=== PATIENT | male | born 1980 | race African-American/Black ===

== ENCOUNTER 2021-02-28 09:21 | Emergency (ER) | payer MEDICARE, OTHER ==
[2021-02-28] MEDS ORDERED: Lidocaine 1% (PF) 30 ML VIAL ONE (11:31)
[2021-02-28] MEDS ORDERED: Midazolam HCl 2 mg/2 ml Vial ONE (13:04)
[2021-02-28] MEDS ORDERED: Phenylephrine 10 MG/ML VIAL IV SCH (13:30)
[2021-02-28] MEDS ORDERED: Morphine 4 MG/ML VIAL ONE (14:13)
== END 2021-02-28 15:10 | disposition home or self-care (01) ==
LOC: ERS 09:21
DX: N48.30 Priapism, unspecified (principal); Z79.899 Other long term (current) drug therapy; I10 Essential (primary) hypertension
CPT/HCPCS: 54235; 96374; J2001; J2250; J2270; J2370

== ENCOUNTER 2021-04-13 17:28 | Inpatient (IN) | payer MEDICARE, OTHER ==
[2021-04-13] MEDS ORDERED: Morphine 4 MG/ML VIAL ONE (19:24)
[2021-04-13] MEDS ORDERED: Ondansetron PF 4 MG/2 ML Vial ONE (19:25)
[2021-04-13] MEDS ORDERED: Cefepime 2 GM VIAL ONE (19:25)
[2021-04-13 20:00] LABS: #Eosinphils 0.4 thou/uL (0.0-0.7); #Lymphocytes 1.7 thou/uL (1.20-3.40); #Monocytes 0.9 thou/uL (0.11-0.59); #Neutrophils 10.7 thou/uL (1.40-6.50); %Basophils 0.3 % (0.0-1.0); %Eosinophils 2.8 % (0.0-10.0); %Lymphocytes 12.1 % (21.0-51.0); %Monocytes 6.7 % (0.0-10.0); %Neutrophils 78.1 % (42.0-75.0); Hemoglobin 12.1 g/dL (14.0-18.0); Mean Corpuscular HGB CONC 32.9 g/dL (32.0-36.0); Mean Corpuscular Hemoglobin 30.9 pg (27.0-31.0); Mean Corpuscular Volume 93.7 fL (78.0-98.0); Mean Platelet Volume 9.2 fL (7.4-10.4); Platelet Count 222 thou/uL (130-400); RBC Distribution Width 12.7 % (11.5-14.5); Red Blood Cell (RBC) Count 3.91 mill/uL (4.70-6.10); White Blood Cell (WBC) Count 13.8 thou/uL (4.8-10.8)
[2021-04-13] MEDS ORDERED: Ondansetron PF 4 MG/2 ML Vial IVP PRN (20:16)
[2021-04-13] MEDS ORDERED: Ondansetron ODT 4 MG TAB PO PRN (20:16)
[2021-04-13] MEDS ORDERED: HYDROcodone/Acetaminophen 5/325 mg Tablet PO PRN (20:16)
[2021-04-13] MEDS ORDERED: oxyCODONE ER 10 MG TAB PO SCH (21:00)
[2021-04-13 21:06] LABS: Anion Gap 9 mmol/L (10-20); BUN (Urea Nitrogen) 22 mg/dL (8.9-20.6); Calc. Creatinine Clearance 0 mL/min (70-130); Calcium 9.3 mg/dL (7.8-10.44); Carbon Dioxide 34 mmol/L (22-29); Chloride 104 mmol/L (98-107); Glucose 93 mg/dL (70-105); Potassium 3.8 mmol/L (3.5-5.1); Sodium 143 mmol/L (136-145)
[2021-04-13 22:27] VITALS: BMI 32.7
[2021-04-13] MEDS ORDERED: VANCOMYCIN 2 GRAM/400 ML BAG 2 GM in Premix Bag 1 BAG IVPB SCH (23:00)
[2021-04-13] MEDS: Morphine 4 MG/ML VIAL SLOW IVP PRN (23:27)
[2021-04-13] MEDS ORDERED: Bumetanide 1 MG TAB PO SCH (23:30)
[2021-04-13] MEDS ORDERED: Carvedilol 25 MG TAB PO SCH (23:30)
[2021-04-13] MEDS ORDERED: Spironolactone 25 MG TAB PO SCH (23:30)
[2021-04-13] MEDS ORDERED: Sacubitril 49 MG/Valsartan 51 MG TABLET PO SCH (23:30)
[2021-04-14] MEDS ORDERED: Docusate 100 MG CAP PO PRN (00:43)
[2021-04-14] MEDS: HYDROcodone/Acetaminophen 5/325 mg Tablet PO PRN ×2 (00:52→04:27)
[2021-04-14] MEDS ORDERED: Zolpidem Tartrate 5 MG TAB PO PRN (01:01)
[2021-04-14] MEDS: Morphine 4 MG/ML VIAL SLOW IVP PRN (02:47)
[2021-04-14 04:18] VITALS: BP 116/80
[2021-04-14 04:51] VITALS: TEMP 98.5
[2021-04-14] MEDS ORDERED: Spironolactone 25 MG TAB PO SCH (08:00)
[2021-04-14] MEDS ORDERED: Cefepime 1 GM in Sodium Chloride 0.9% 100 ML IVPB SCH (08:00)
[2021-04-14] MEDS ORDERED: Carvedilol 25 MG TAB PO SCH (08:00)
[2021-04-14] MEDS ORDERED: Potassium Chloride 10 MEQ TAB PO SCH (08:00)
[2021-04-14] MEDS ORDERED: CEFEPIME HCL IN DEXTROSE 5 % 1 GM in Premix Bag 1 BAG IVPB SCH (08:00)
[2021-04-14] MEDS ORDERED: Sacubitril 49 MG/Valsartan 51 MG TABLET PO SCH (09:00)
[2021-04-14] MEDS ORDERED: Bumetanide 1 MG TAB PO SCH (09:00)
[2021-04-14] MEDS ORDERED: Polyethylene Glycol 3350 17 GM Packet PO SCH (09:00)
[2021-04-14] MEDS ORDERED: VANCOMYCIN 1.75 GM/350 ML BAG 1.75 GM in Premix Bag 1 BAG IVPB SCH (11:00)
== END 2021-04-14 05:55 | disposition left against medical advice (07) | DRG 728 ==
LOC: ERS 17:28 → MERGE 19:47 → T4-B 19:47
PROVIDERS: ADMIT Internal Medicine; ATTEND Internal Medicine
DX: N48.29 Other inflammatory disorders of penis (principal); I50.42 Chronic combined systolic (congestive) and diastolic (congestive) heart failure; N48.30 Priapism, unspecified; Z20.822 Contact with and (suspected) exposure to COVID-19; I11.0 Hypertensive heart disease with heart failure; D72.829 Elevated white blood cell count, unspecified; Z53.29 Procedure and treatment not carried out because of patient's decision for other reasons; Z79.899 Other long term (current) drug therapy
CPT/HCPCS: 36415; 96365; 96366; 96375; J0692; J2270; J2405; J3370

== ENCOUNTER 2021-04-15 01:49 | Inpatient (IN) | payer MEDICARE, OTHER ==
[2021-04-15] MEDS ORDERED: Furosemide 40 MG/4 ML VIAL SLOW IVP SCH (05:00)
[2021-04-15] MEDS ORDERED: Acetaminophen 650 MG Suppository PR PRN (05:01)
[2021-04-15] MEDS ORDERED: Acetaminophen 325 MG TAB PO PRN (05:01)
[2021-04-15] MEDS: HYDROcodone/Acetaminophen 5/325 mg Tablet PO PRN ×4 (05:24→20:47)
[2021-04-15 05:55] VITALS: BMI 30.5
[2021-04-15 06:23] LABS: #Basophils 0.1 thou/uL (0.0-0.2); #Eosinphils 0.1 thou/uL (0.0-0.7); #Lymphocytes 1.8 thou/uL (1.20-3.40); #Monocytes 1.1 thou/uL (0.11-0.59); #Neutrophils 9.9 thou/uL (1.40-6.50); %Basophils 0.5 % (0.0-1.0); %Eosinophils 1.1 % (0.0-10.0); %Lymphocytes 13.7 % (21.0-51.0); %Monocytes 8.2 % (0.0-10.0); %Neutrophils 76.4 % (42.0-75.0); Mean Corpuscular HGB CONC 32.8 g/dL (32.0-36.0); Mean Corpuscular Hemoglobin 30.6 pg (27.0-31.0); Mean Corpuscular Volume 93.3 fL (78.0-98.0); Platelet Count 283 thou/uL (130-400); RBC Distribution Width 12.8 % (11.5-14.5); Red Blood Cell (RBC) Count 4.24 mill/uL (4.70-6.10); White Blood Cell (WBC) Count 12.9 thou/uL (4.8-10.8)
[2021-04-15 06:37] LABS: Anion Gap 12 mmol/L (10-20); BUN (Urea Nitrogen) 15 mg/dL (8.9-20.6); Calc. Creatinine Clearance 138 mL/min (70-130); Calcium 9.9 mg/dL (7.8-10.44); Carbon Dioxide 29 mmol/L (22-29); Chloride 102 mmol/L (98-107); Glucose 108 mg/dL (70-105); Potassium 3.5 mmol/L (3.5-5.1); Sodium 139 mmol/L (136-145)
[2021-04-15] MEDS ORDERED: Morphine 4 MG/ML VIAL SLOW IVP SCH (09:00)
[2021-04-15] MEDS: Carvedilol 25 MG TAB PO SCH ×2 (09:05→20:15)
[2021-04-15] MEDS ORDERED: HYDROcodone/Acetaminophen 5/325 mg Tablet PO PRN (11:30)
[2021-04-15] MEDS: Spironolactone 25 MG TAB PO SCH (11:35)
[2021-04-15] MEDS: Sacubitril 49 MG/Valsartan 51 MG TABLET PO SCH ×2 (11:35→20:18)
[2021-04-15] MEDS: Cefepime 2 GM in Sodium Chloride 0.9% 100 ML IVPB SCH ×2 (11:35→20:20)
[2021-04-15] MEDS: Morphine 2 MG/ML VIAL SLOW IVP PRN ×3 (13:56→22:22)
[2021-04-15 15:01] LABS: Amphetamine Not Detected (NotDetected); Barbiturates Screen Not Detected (NotDetected); Benzodiazepine Screen Not Detected (NotDetected); Cocaine Metabolite Screen Not Detected (NotDetected); Methadone Not Detected (NotDetected); Methamphetamine Not Detected (NotDetected); Opiate Screen Detected (NotDetected); Oxycodone Screen Not Detected (NotDetected); Phencyclidine (PCP) Not Detected (NotDetected); THC/Cannabinoid Screen Not Detected (NotDetected); Tricyclic Screen Not Detected (NotDetected)
[2021-04-15] MEDS: Ibuprofen 200 MG TAB PO SCH ×2 (15:46→20:16)
[2021-04-15] MEDS ORDERED: Triple Antibiotic Oint 1 GM Packet TOP PRN (18:07)
[2021-04-15] MEDS ORDERED: Potassium Chloride 10 MEQ TAB PO SCH (18:15)
[2021-04-15] MEDS: Vancomycin 1.5 GRAM/300 ML BAG 1.5 GM in Premix Bag 1 BAG IVPB SCH (18:18)
[2021-04-15] MEDS: Zolpidem Tartrate 5 MG TAB PO PRN (22:23)
[2021-04-16] MEDS: Morphine 2 MG/ML VIAL SLOW IVP PRN ×3 (03:44→12:27)
[2021-04-16] MEDS: HYDROcodone/Acetaminophen 5/325 mg Tablet PO PRN ×2 (05:57→10:18)
[2021-04-16] MEDS: Vancomycin 1.5 GRAM/300 ML BAG 1.5 GM in Premix Bag 1 BAG IVPB SCH ×2 (05:59→17:43)
[2021-04-16 06:49] LABS: #Basophils 0.1 thou/uL (0.0-0.2); #Eosinphils 0.3 thou/uL (0.0-0.7); #Lymphocytes 1.5 thou/uL (1.20-3.40); #Neutrophils 5.9 thou/uL (1.40-6.50); %Eosinophils 2.9 % (0.0-10.0); %Lymphocytes 17.2 % (21.0-51.0); %Monocytes 11.4 % (0.0-10.0); %Neutrophils 67.5 % (42.0-75.0); Hemoglobin 12.5 g/dL (14.0-18.0); Mean Corpuscular HGB CONC 32.6 g/dL (32.0-36.0); Mean Corpuscular Hemoglobin 30.5 pg (27.0-31.0); Mean Corpuscular Volume 93.6 fL (78.0-98.0); Mean Platelet Volume 9.4 fL (7.4-10.4); Platelet Count 252 thou/uL (130-400); Red Blood Cell (RBC) Count 4.11 mill/uL (4.70-6.10); White Blood Cell (WBC) Count 8.7 thou/uL (4.8-10.8)
[2021-04-16 07:23] LABS: Anion Gap 11 mmol/L (10-20); BUN (Urea Nitrogen) 18 mg/dL (8.9-20.6); Calc. Creatinine Clearance 144 mL/min (70-130); Calcium 9.3 mg/dL (7.8-10.44); Carbon Dioxide 30 mmol/L (22-29); Chloride 104 mmol/L (98-107); Glucose 129 mg/dL (70-105); Potassium 3.7 mmol/L (3.5-5.1); Sodium 141 mmol/L (136-145)
[2021-04-16] MEDS: Carvedilol 25 MG TAB PO SCH ×2 (08:25→20:14)
[2021-04-16] MEDS: Cefepime 2 GM in Sodium Chloride 0.9% 100 ML IVPB SCH ×2 (08:26→20:13)
[2021-04-16] MEDS: Sacubitril 49 MG/Valsartan 51 MG TABLET PO SCH ×2 (08:26→20:13)
[2021-04-16] MEDS: Potassium Chloride 10 MEQ TAB PO SCH ×2 (08:26→17:43)
[2021-04-16] MEDS: Furosemide 40 MG TAB PO SCH (08:26)
[2021-04-16] MEDS: Spironolactone 25 MG TAB PO SCH (08:26)
[2021-04-16] MEDS ORDERED: Furosemide 20 MG TAB PO SCH (09:00)
[2021-04-16] MEDS: HYDROcodone/Acetaminophen 10/325 mg Tablet PO PRN (15:03)
[2021-04-16 17:22] LABS: Vancomycin, Trough 11.8 ug/mL
[2021-04-16] MEDS: Morphine 4 MG/ML VIAL SLOW IVP PRN ×2 (17:43→21:43)
[2021-04-16] MEDS: Zolpidem Tartrate 5 MG TAB PO PRN (20:16)
[2021-04-17] MEDS: Morphine 4 MG/ML VIAL SLOW IVP PRN ×3 (01:36→10:14)
[2021-04-17] MEDS ORDERED: VANCOMYCIN 1.25 GM/250 ML BAG 1.25 GM in Premix Bag 1 BAG IVPB SCH (02:00)
[2021-04-17] MEDS: HYDROcodone/Acetaminophen 10/325 mg Tablet PO PRN (06:30)
[2021-04-17] MEDS: Spironolactone 25 MG TAB PO SCH (09:48)
[2021-04-17] MEDS: Sacubitril 49 MG/Valsartan 51 MG TABLET PO SCH (09:48)
[2021-04-17] MEDS: Furosemide 40 MG TAB PO SCH (09:48)
[2021-04-17] MEDS: Carvedilol 25 MG TAB PO SCH (09:49)
[2021-04-17] MEDS: Potassium Chloride 10 MEQ TAB PO SCH (09:49)
[2021-04-17] MEDS: Cefepime 2 GM in Sodium Chloride 0.9% 100 ML IVPB SCH (09:50)
[2021-04-17 11:56] VITALS: BP 122/67; TEMP 98.6
[2021-04-18 12:38] LABS: Hemoglobin A2 2.9 % (1.8-3.2)
== END 2021-04-17 11:35 | disposition home or self-care (01) | DRG 727 ==
LOC: ERS 01:49 → MERGE 03:58 → SURG A 03:58
PROVIDERS: ADMIT Student in an Organized Health Care Education/Training Program; ATTEND Family Medicine
DX: N48.29 Other inflammatory disorders of penis (principal); I50.23 Acute on chronic systolic (congestive) heart failure; I42.9 Cardiomyopathy, unspecified; B95.2 Enterococcus as the cause of diseases classified elsewhere; Z20.822 Contact with and (suspected) exposure to COVID-19; N48.30 Priapism, unspecified; E78.5 Hyperlipidemia, unspecified; I11.0 Hypertensive heart disease with heart failure; F14.10 Cocaine abuse, uncomplicated; F17.210 Nicotine dependence, cigarettes, uncomplicated; Z79.899 Other long term (current) drug therapy; Z79.01 Long term (current) use of anticoagulants; Z91.14 Patient's other noncompliance with medication regimen
CPT/HCPCS: 36415; 71045; 80048; 80202; 80306; 83021; 85025; 85660; 87040; 87070; 87077; 87186; 93306; 97139; J0692; J1940; J2270; J3370; J3490

== ENCOUNTER 2021-09-09 14:05 | Emergency (ER) | payer MEDICARE, OTHER ==
[2021-09-09 15:46] LABS: Bilirubin Negative (Negative); Blood, Urine Negative (Negative); Clarity Clear (Clear); Glucose, Urine (Dipstick) Normal (Negative); Ketone, Urine Negative (Negative); Leukocyte Negative Leu/uL (Negative); Nitrite Negative (Negative); Protein, Urine (Dipstick) Negative (Neg-Trace); Specific Gravity, Urine 1.015 (1.002-1.036); Urobilinogen Normal mg/dL (Less than 2)
[2021-09-09 17:35] LABS: #Basophils 0.1 thou/uL (0.0-0.2); #Eosinphils 0.2 thou/uL (0.0-0.7); #Lymphocytes 1.9 thou/uL (1.20-3.40); #Monocytes 0.7 thou/uL (0.11-0.59); #Neutrophils 6.1 thou/uL (1.40-6.50); %Eosinophils 2.5 % (0.0-10.0); %Lymphocytes 20.7 % (21.0-51.0); %Monocytes 7.9 % (0.0-10.0); %Neutrophils 67.9 % (42.0-75.0); Hemoglobin 14.7 g/dL (14.0-18.0); Mean Corpuscular HGB CONC 33.7 g/dL (32.0-36.0); Mean Corpuscular Hemoglobin 30.4 pg (27.0-31.0); Mean Platelet Volume 9.4 fL (7.4-10.4); Platelet Count 180 thou/uL (130-400); RBC Distribution Width 13.3 % (11.5-14.5); Red Blood Cell (RBC) Count 4.86 mill/uL (4.70-6.10)
[2021-09-09 17:55] LABS: ALT (SGPT) 26 U/L (8-55); AST (SGOT) 28 U/L (5-34); Alkaline Phosphatase 75 U/L (40-110); Anion Gap 14 mmol/L (10-20); BUN (Urea Nitrogen) 19 mg/dL (8.9-20.6); Bilirubin, Total 0.5 mg/dL (0.2-1.2); Calc. Creatinine Clearance 0 mL/min (70-130); Calcium 9.7 mg/dL (7.8-10.44); Carbon Dioxide 31 mmol/L (22-29); Chloride 101 mmol/L (98-107); Globulin 3.5 g/dL (2.4-3.5); Glucose 76 mg/dL (70-105); Lipase 25 U/L (8-78); Potassium 4.2 mmol/L (3.5-5.1); Protein, Total 7.5 g/dL (6.0-8.3); Sodium 142 mmol/L (136-145)
== END 2021-09-09 18:05 | disposition home or self-care (01) ==
LOC: ERS 14:05
DX: S29.011A Strain of muscle and tendon of front wall of thorax, initial encounter (principal); R10.9 Unspecified abdominal pain; I11.0 Hypertensive heart disease with heart failure; I50.9 Heart failure, unspecified; I25.2 Old myocardial infarction; Z79.899 Other long term (current) drug therapy
CPT/HCPCS: 36415; 80053; 81003; 83690; 85025; 99284

== ENCOUNTER 2021-10-19 11:49 | Inpatient (IN) | payer MEDICARE, OTHER ==
[2021-10-19 13:16] LABS: #Basophils 0.1 thou/uL (0.0-0.2); #Eosinphils 0.2 thou/uL (0.0-0.7); #Lymphocytes 1.8 thou/uL (1.20-3.40); #Monocytes 0.7 thou/uL (0.11-0.59); #Neutrophils 5.3 thou/uL (1.40-6.50); %Basophils 1.1 % (0.0-1.0); %Eosinophils 2.2 % (0.0-10.0); %Lymphocytes 22.6 % (21.0-51.0); %Monocytes 8.5 % (0.0-10.0); %Neutrophils 65.6 % (42.0-75.0); Hemoglobin 15.6 g/dL (14.0-18.0); Mean Corpuscular HGB CONC 31.7 g/dL (32.0-36.0); Mean Corpuscular Hemoglobin 28.8 pg (27.0-31.0); Mean Corpuscular Volume 90.8 fL (78.0-98.0); Platelet Count 159 thou/uL (130-400); RBC Distribution Width 13.3 % (11.5-14.5); Red Blood Cell (RBC) Count 5.41 mill/uL (4.70-6.10); White Blood Cell (WBC) Count 8.1 thou/uL (4.8-10.8)
[2021-10-19] MEDS ORDERED: Guaifenesin DM 100-10/5 ML UDCUP PO PRN (13:55)
[2021-10-19] MEDS ORDERED: Senokot S 8.6-50 MG TAB PO PRN (13:55)
[2021-10-19] MEDS ORDERED: Ondansetron PF 4 MG/2 ML Vial IVP PRN (13:55)
[2021-10-19] MEDS ORDERED: Acetaminophen 325 MG TAB PO PRN (13:55)
[2021-10-19 14:16] LABS: ALT (SGPT) 16 U/L (8-55); AST (SGOT) 21 U/L (5-34); Albumin 4.5 g/dL (3.5-5.0); Alkaline Phosphatase 73 U/L (40-110); Anion Gap 15 mmol/L (10-20); BUN (Urea Nitrogen) 27 mg/dL (8.9-20.6); Bilirubin, Total 0.7 mg/dL (0.2-1.2); Calc. Creatinine Clearance 0 mL/min (70-130); Carbon Dioxide 28 mmol/L (22-29); Chloride 100 mmol/L (98-107); Globulin 3.7 g/dL (2.4-3.5); Glucose 108 mg/dL (70-105); Potassium 4.2 mmol/L (3.5-5.1); Protein, Total 8.2 g/dL (6.0-8.3); Sodium 139 mmol/L (136-145)
[2021-10-19 14:41] LABS: CKMB 1.6 ng/mL (0-6.6)
[2021-10-19 17:27] VITALS: BMI 30.1
[2021-10-19 20:25] LABS: Magnesium 2.2 mg/dL (1.6-2.6)
[2021-10-19] MEDS: Famotidine 20 MG TAB PO SCH (20:39)
[2021-10-19] MEDS: Potassium Chloride 10 MEQ TAB PO SCH (20:39)
[2021-10-19] MEDS: Carvedilol 25 MG TAB PO SCH (20:39)
[2021-10-19] MEDS ORDERED: Melatonin 3 MG TAB PO PRN (22:04)
[2021-10-20 00:54] LABS: SARS-CoV-2 PCR by NAA Not Detected (NotDetected)
[2021-10-20] MEDS: Milrinone Lactate/D5W 20 MG in Premix Bag 1 BAG IV SCH ×2 (03:35→13:16)
[2021-10-20 06:55] LABS: #Basophils 0.1 thou/uL (0.0-0.2); #Eosinphils 0.2 thou/uL (0.0-0.7); #Lymphocytes 1.6 thou/uL (1.20-3.40); #Monocytes 0.8 thou/uL (0.11-0.59); #Neutrophils 5.1 thou/uL (1.40-6.50); %Basophils 0.8 % (0.0-1.0); %Eosinophils 2.8 % (0.0-10.0); %Lymphocytes 20.5 % (21.0-51.0); Hemoglobin 14.2 g/dL (14.0-18.0); Mean Corpuscular HGB CONC 31.3 g/dL (32.0-36.0); Mean Corpuscular Hemoglobin 28.3 pg (27.0-31.0); Mean Corpuscular Volume 90.4 fL (78.0-98.0); Mean Platelet Volume 10.2 fL (7.4-10.4); Platelet Count 152 thou/uL (130-400); RBC Distribution Width 13.2 % (11.5-14.5); Red Blood Cell (RBC) Count 5.03 mill/uL (4.70-6.10); White Blood Cell (WBC) Count 7.8 thou/uL (4.8-10.8)
[2021-10-20 07:13] LABS: Anion Gap 11 mmol/L (10-20); BUN (Urea Nitrogen) 24 mg/dL (8.9-20.6); Calc. Creatinine Clearance 111 mL/min (70-130); Calcium 9.5 mg/dL (7.8-10.44); Carbon Dioxide 27 mmol/L (22-29); Chloride 101 mmol/L (98-107); Glucose 108 mg/dL (70-105); Potassium 4.1 mmol/L (3.5-5.1); Sodium 135 mmol/L (136-145)
[2021-10-20 07:13] LABS: Magnesium 2.1 mg/dL (1.6-2.6)
[2021-10-20] MEDS: Famotidine 20 MG TAB PO SCH (08:55)
[2021-10-20] MEDS: Potassium Chloride 10 MEQ TAB PO SCH (08:56)
[2021-10-20] MEDS: Carvedilol 25 MG TAB PO SCH (08:58)
[2021-10-20] MEDS ORDERED: FLU VACC QS2021-22(6MOS UP)/PF 60 MCG/0.5 ML SYRINGE IM ONE (09:00)
[2021-10-20] MEDS ORDERED: Furosemide 40 MG/4 ML VIAL SLOW IVP SCH (09:00)
[2021-10-20] MEDS ORDERED: Enoxaparin Sodium 40 MG/0.4 ML SYRINGE SC SCH (09:00)
[2021-10-20 11:39] VITALS: TEMP 97.7
[2021-10-20] MEDS ORDERED: Spironolactone 25 MG TAB PO SCH (12:30)
[2021-10-20 12:39] VITALS: BP 122/61
[2021-10-21] MEDS ORDERED: Spironolactone 25 MG TAB PO SCH (08:00)
== END 2021-10-20 13:40 | disposition short-term general hospital (02) | DRG 291 ==
LOC: ERS 11:49 → IMCU/EMU 14:01 → 2NO 17:09
PROVIDERS: ADMIT Hospitalist; ATTEND Internal Medicine
DX: I13.0 Hypertensive heart and chronic kidney disease with heart failure and stage 1 through stage 4 chronic kidney disease, or unspecified chronic kidney disease (principal); R57.0 Cardiogenic shock; I50.23 Acute on chronic systolic (congestive) heart failure; I42.0 Dilated cardiomyopathy; Z20.822 Contact with and (suspected) exposure to COVID-19; E78.5 Hyperlipidemia, unspecified; N18.2 Chronic kidney disease, stage 2 (mild); Z88.8 Allergy status to other drugs, medicaments and biological substances; Z79.899 Other long term (current) drug therapy; Z87.891 Personal history of nicotine dependence
CPT/HCPCS: 36415; 71045; 80048; 80053; 82553; 83735; 83880; 84484; 85025; 93005; 93306; 93798; J1650; J1940; J2260; U0003; U0005

== ENCOUNTER 2024-02-17 07:51 | Inpatient (IN) | payer MEDICAID, MEDICARE ==
[2024-02-17 19:21] VITALS: BMI 29.0
[2024-02-17] MEDS ORDERED: Simethicone Chewable 80 MG TAB PO PRN (20:08)
[2024-02-17 20:21] LABS: %Basophils 0.9 % (0.0-1.0); %Eosinophils 2.6 % (0.0-10.0); %Lymphocytes 15.2 % (21.0-51.0); %Monocytes 8.9 % (0.0-10.0); %Neutrophils 72.1 % (42.0-75.0); Hematocrit 47.7 % (42.0-52.0); Hemoglobin 15.9 g/dL (14.0-18.0); Mean Corpuscular HGB CONC 33.3 g/dL (32.0-36.0); Mean Corpuscular Hemoglobin 28.4 pg (27.0-31.0); Mean Corpuscular Volume 85.3 fL (78.0-98.0); Mean Platelet Volume 11.4 fL (7.4-10.4); Platelet Count 253 10x3/uL (130-400); RBC Distribution Width 14.7 % (11.5-14.5); Red Blood Cell (RBC) Count 5.59 mill/uL (4.70-6.10)
[2024-02-17 20:27] LABS: ALT (SGPT) 35 U/L (8-55); AST (SGOT) 33 U/L (5-34); Albumin 3.8 g/dL (3.5-5.0); Alkaline Phosphatase 70 U/L (40-110); Anion Gap 17 mmol/L (10-20); BUN (Urea Nitrogen) 55 mg/dL (8.9-20.6); Bilirubin, Total 0.6 mg/dL (0.2-1.2); Calc. Creatinine Clearance 82 mL/min (70-130); Calcium 9.7 mg/dL (7.8-10.44); Carbon Dioxide 25 mmol/L (22-29); Chloride 94 mmol/L (98-107); Estimated GFR 54; Globulin 3.3 g/dL (2.4-3.5); Glucose 109 mg/dL (70-105); Magnesium 2.2 mg/dL (1.6-2.6); Potassium 3.8 mmol/L (3.5-5.1); Protein, Total 7.1 g/dL (6.0-8.3); Sodium 132 mmol/L (136-145)
[2024-02-17 20:30] LABS: Phosphorus 2.8 mg/dL (2.3-4.7)
[2024-02-17] MEDS: Bumetanide 1 MG TAB PO SCH (21:20)
[2024-02-17] MEDS: Zolpidem Tartrate 5 MG TAB PO SCH (21:20)
[2024-02-17] MEDS: Carvedilol 25 MG TAB PO SCH (21:21)
[2024-02-17] MEDS: Milrinone 20 MG in Sodium Chloride 0.9% 100 ML IVPB SCH (21:23)
[2024-02-17] MEDS: Potassium Chloride 10 MEQ TAB PO SCH (21:46)
[2024-02-18] MEDS: Empagliflozin 25 MG TAB PO SCH (08:12)
[2024-02-18] MEDS: Enoxaparin 40 MG (0.4 mL) SYRINGE SC SCH (08:12)
[2024-02-18] MEDS: Pantoprazole DR 40 MG TAB PO SCH (08:12)
[2024-02-18] MEDS: Digoxin 0.125 MG TAB PO SCH (08:12)
[2024-02-18] MEDS: Atorvastatin Calcium 40 MG TAB PO SCH (08:12)
[2024-02-18] MEDS: Spironolactone 25 MG TAB PO SCH (08:12)
[2024-02-18] MEDS: Potassium Chloride 10 MEQ TAB PO SCH (08:12)
[2024-02-18 09:05] LABS: #Basophils 0.11 10x3/uL (0.0-0.2); %Basophils 0.9 % (0.0-1.0); %Eosinophils 3.1 % (0.0-10.0); %Lymphocytes 15.4 % (21.0-51.0); %Neutrophils 72.4 % (42.0-75.0); Hematocrit 48.4 % (42.0-52.0); Hemoglobin 15.6 g/dL (14.0-18.0); Mean Corpuscular HGB CONC 32.2 g/dL (32.0-36.0); Mean Corpuscular Hemoglobin 28.3 pg (27.0-31.0); Mean Corpuscular Volume 87.8 fL (78.0-98.0); Mean Platelet Volume 11.4 fL (7.4-10.4); Platelet Count 235 10x3/uL (130-400); RBC Distribution Width 14.7 % (11.5-14.5); Red Blood Cell (RBC) Count 5.51 mill/uL (4.70-6.10)
[2024-02-18 09:33] LABS: Anion Gap 19 mmol/L (10-20); BUN (Urea Nitrogen) 59 mg/dL (8.9-20.6); Calc. Creatinine Clearance 90 mL/min (70-130); Calcium 9.5 mg/dL (7.8-10.44); Carbon Dioxide 24 mmol/L (22-29); Chloride 95 mmol/L (98-107); Estimated GFR 59; Glucose 138 mg/dL (70-105); Potassium 3.5 mmol/L (3.5-5.1); Sodium 134 mmol/L (136-145)
[2024-02-18] MEDS: Potassium Chloride 20 MEQ TAB PO SCH (11:09)
[2024-02-18 11:38] VITALS: BMI 29.7
[2024-02-18] MEDS: Milrinone Lactate/D5W 20 MG in Premix 1 BAG IV SCH (19:18)
[2024-02-18] MEDS: Acetaminophen 325 MG TAB PO PRN (21:19)
[2024-02-19 04:51] LABS: %Lymphocytes 18.9 % (21.0-51.0); %Monocytes 9.1 % (0.0-10.0); %Neutrophils 66.9 % (42.0-75.0); Hematocrit 44.9 % (42.0-52.0); Mean Corpuscular HGB CONC 33.4 g/dL (32.0-36.0); Mean Corpuscular Hemoglobin 28.5 pg (27.0-31.0); Mean Corpuscular Volume 85.4 fL (78.0-98.0); Mean Platelet Volume 11.7 fL (7.4-10.4); Platelet Count 218 10x3/uL (130-400); RBC Distribution Width 14.4 % (11.5-14.5); Red Blood Cell (RBC) Count 5.26 mill/uL (4.70-6.10)
[2024-02-19 05:58] LABS: Anion Gap 14 mmol/L (10-20); BUN (Urea Nitrogen) 52 mg/dL (8.9-20.6); Calc. Creatinine Clearance 90 mL/min (70-130); Calcium 9.6 mg/dL (7.8-10.44); Carbon Dioxide 29 mmol/L (22-29); Chloride 96 mmol/L (98-107); Estimated GFR 59; Glucose 118 mg/dL (70-105); Magnesium 2.2 mg/dL (1.6-2.6); Potassium 3.6 mmol/L (3.5-5.1); Sodium 135 mmol/L (136-145)
[2024-02-19] MEDS: Sacubitril 24MG/Valsartan 26 MG TAB PO SCH (08:39)
[2024-02-20 05:02] LABS: #Basophils 0.09 10x3/uL (0.0-0.2); %Basophils 0.8 % (0.0-1.0); %Eosinophils 2.8 % (0.0-10.0); %Lymphocytes 14.9 % (21.0-51.0); %Monocytes 9.4 % (0.0-10.0); %Neutrophils 71.7 % (42.0-75.0); Hematocrit 46.8 % (42.0-52.0); Hemoglobin 15.3 g/dL (14.0-18.0); Mean Corpuscular HGB CONC 32.7 g/dL (32.0-36.0); Mean Corpuscular Hemoglobin 28.8 pg (27.0-31.0); Mean Platelet Volume 11.6 fL (7.4-10.4); Platelet Count 215 10x3/uL (130-400); RBC Distribution Width 14.6 % (11.5-14.5); Red Blood Cell (RBC) Count 5.32 mill/uL (4.70-6.10)
[2024-02-20 05:22] LABS: Anion Gap 18 mmol/L (10-20); BUN (Urea Nitrogen) 40 mg/dL (8.9-20.6); Calc. Creatinine Clearance 98 mL/min (70-130); Calcium 9.7 mg/dL (7.8-10.44); Carbon Dioxide 28 mmol/L (22-29); Chloride 94 mmol/L (98-107); Estimated GFR 68; Glucose 115 mg/dL (70-105); Magnesium 2.2 mg/dL (1.6-2.6); Potassium 3.8 mmol/L (3.5-5.1); Sodium 136 mmol/L (136-145)
[2024-02-20] MEDS ORDERED: Metolazone 5 MG TAB PO SCH (09:00)
[2024-02-20] MEDS: Sacubitril 24MG/Valsartan 26 MG TAB PO SCH (09:07)
[2024-02-20] MEDS: Spironolactone 25 MG TAB PO SCH (09:08)
[2024-02-20] MEDS: Terbinafine 1% Cream 15 GM Tube TOP SCH (09:09)
[2024-02-20] MEDS ORDERED: Sodium Bicarbonate 2.5 MEQ/5 ML SDV ONE (13:13)
[2024-02-20] MEDS ORDERED: Lidocaine 1% PF 5 ML VIAL ONE (13:13)
[2024-02-20] MEDS: Lidocaine 4% Patch TD SCH (16:43)
[2024-02-20] MEDS: Transdermal Patch Removal TOP SCH (21:41)
[2024-02-21 05:55] LABS: #Basophils 0.08 10x3/uL (0.0-0.2); %Basophils 0.8 % (0.0-1.0); %Eosinophils 2.4 % (0.0-10.0); %Lymphocytes 16.7 % (21.0-51.0); %Monocytes 8.8 % (0.0-10.0); %Neutrophils 71.1 % (42.0-75.0); Hematocrit 47.1 % (42.0-52.0); Hemoglobin 15.3 g/dL (14.0-18.0); Mean Corpuscular HGB CONC 32.5 g/dL (32.0-36.0); Mean Corpuscular Hemoglobin 28.1 pg (27.0-31.0); Mean Corpuscular Volume 86.6 fL (78.0-98.0); Mean Platelet Volume 12.4 fL (7.4-10.4); Platelet Count 201 10x3/uL (130-400); RBC Distribution Width 14.6 % (11.5-14.5); Red Blood Cell (RBC) Count 5.44 mill/uL (4.70-6.10)
[2024-02-21 06:25] LABS: Anion Gap 15 mmol/L (10-20); BUN (Urea Nitrogen) 33 mg/dL (8.9-20.6); Calc. Creatinine Clearance 105 mL/min (70-130); Calcium 9.9 mg/dL (7.8-10.44); Carbon Dioxide 29 mmol/L (22-29); Chloride 96 mmol/L (98-107); Estimated GFR 73; Glucose 142 mg/dL (70-105); Magnesium 2.1 mg/dL (1.6-2.6); Sodium 136 mmol/L (136-145)
[2024-02-21] MEDS: Lidocaine 4% Patch TD SCH (09:46)
[2024-02-21] MEDS: Carvedilol 6.25 MG TAB PO SCH (09:47)
[2024-02-22 06:30] LABS: #Basophils 0.08 10x3/uL (0.0-0.2); %Basophils 0.7 % (0.0-1.0); %Eosinophils 2.3 % (0.0-10.0); %Lymphocytes 16.9 % (21.0-51.0); %Monocytes 9.7 % (0.0-10.0); %Neutrophils 70.2 % (42.0-75.0); Hematocrit 45.5 % (42.0-52.0); Hemoglobin 14.7 g/dL (14.0-18.0); Mean Corpuscular HGB CONC 32.3 g/dL (32.0-36.0); Mean Corpuscular Hemoglobin 28.8 pg (27.0-31.0); Mean Platelet Volume 11.8 fL (7.4-10.4); Platelet Count 185 10x3/uL (130-400); RBC Distribution Width 14.6 % (11.5-14.5); Red Blood Cell (RBC) Count 5.11 mill/uL (4.70-6.10)
[2024-02-22 06:39] LABS: Anion Gap 15 mmol/L (10-20); BUN (Urea Nitrogen) 33 mg/dL (8.9-20.6); Calc. Creatinine Clearance 106 mL/min (70-130); Calcium 9.6 mg/dL (7.8-10.44); Carbon Dioxide 28 mmol/L (22-29); Chloride 102 mmol/L (98-107); Estimated GFR 73; Glucose 114 mg/dL (70-105); Magnesium 2.1 mg/dL (1.6-2.6); Potassium 4.2 mmol/L (3.5-5.1); Sodium 141 mmol/L (136-145)
[2024-02-22] MEDS: Potassium Chloride 10 MEQ TAB PO SCH (09:11)
[2024-02-23 04:38] LABS: #Basophils 0.09 10x3/uL (0.0-0.2); %Basophils 0.9 % (0.0-1.0); %Eosinophils 3.1 % (0.0-10.0); %Monocytes 10.7 % (0.0-10.0); Hematocrit 44.2 % (42.0-52.0); Hemoglobin 14.3 g/dL (14.0-18.0); Mean Corpuscular HGB CONC 32.4 g/dL (32.0-36.0); Mean Corpuscular Hemoglobin 28.7 pg (27.0-31.0); Mean Corpuscular Volume 88.8 fL (78.0-98.0); Mean Platelet Volume 11.8 fL (7.4-10.4); Platelet Count 191 10x3/uL (130-400); RBC Distribution Width 14.6 % (11.5-14.5); Red Blood Cell (RBC) Count 4.98 mill/uL (4.70-6.10)
[2024-02-23 04:58] LABS: Anion Gap 13 mmol/L (10-20); BUN (Urea Nitrogen) 26 mg/dL (8.9-20.6); Calc. Creatinine Clearance 116 mL/min (70-130); Calcium 9.5 mg/dL (7.8-10.44); Carbon Dioxide 30 mmol/L (22-29); Chloride 102 mmol/L (98-107); Estimated GFR 81; Glucose 103 mg/dL (70-105); Magnesium 2.1 mg/dL (1.6-2.6); Potassium 3.8 mmol/L (3.5-5.1); Sodium 141 mmol/L (136-145)
[2024-02-23 07:56] VITALS: TEMP 97.3
[2024-02-23] MEDS: Potassium Chloride 10 MEQ TAB PO SCH (09:03)
[2024-02-23 13:43] VITALS: BP 103/71
== END 2024-02-23 14:10 | disposition home health service (06) | DRG 291 ==
LOC: 2NO 18:16 → EEVIPCON 18:16
PROVIDERS: ADMIT Family Medicine; ATTEND Family Medicine
PROC: 02HV33Z Insertion of Infusion Device into Superior Vena Cava, Percutaneous Approach (ICD-10-PCS; principal; 2024-02-20)
PROC: B548ZZA Ultrasonography of Superior Vena Cava, Guidance (ICD-10-PCS; 2024-02-20)
DX: I13.0 Hypertensive heart and chronic kidney disease with heart failure and stage 1 through stage 4 chronic kidney disease, or unspecified chronic kidney disease (principal); I50.23 Acute on chronic systolic (congestive) heart failure; I47.20 Ventricular tachycardia, unspecified; E87.1 Hypo-osmolality and hyponatremia; I42.8 Other cardiomyopathies; K21.9 Gastro-esophageal reflux disease without esophagitis; E78.5 Hyperlipidemia, unspecified; Z87.891 Personal history of nicotine dependence; I49.3 Ventricular premature depolarization; N18.30 Chronic kidney disease, stage 3 unspecified; Z88.8 Allergy status to other drugs, medicaments and biological substances; Z79.899 Other long term (current) drug therapy; Z91.141 Patient's other noncompliance with medication regimen due to financial hardship; Z51.5 Encounter for palliative care
CPT/HCPCS: 36415; 36569; 71045; 76937; 77001; 80048; 80053; 83735; 83880; 84100; 85025; 93005; 93010; 93306; 93798; C1751; J1650; J2260; J3490

== ENCOUNTER 2024-03-28 14:14 | Emergency (ER) | payer MEDICARE, MEDICAID ==
[2024-03-28] MEDS ORDERED: HYDROcodone/Acetaminophen 10/325 mg Tablet ONE (15:42)
== END 2024-03-28 15:39 | disposition home or self-care (01) ==
LOC: ERS 14:14
DX: M10.9 Gout, unspecified (principal); I11.0 Hypertensive heart disease with heart failure; I50.9 Heart failure, unspecified

== ENCOUNTER 2024-08-06 23:21 | Observation (INO) | payer MEDICARE, MEDICAID ==
[2024-08-07] MEDS ORDERED: Morphine 4 MG/ML VIAL ONE (00:03)
[2024-08-07] MEDS ORDERED: Ondansetron PF 4 MG/2 ML Vial ONE (00:03)
[2024-08-07 00:24] LABS: #Basophils 0.13 10x3/uL (0.0-0.2); %Basophils 1.2 % (0.0-1.0); %Eosinophils 5.3 % (0.0-10.0); %Lymphocytes 16.6 % (21.0-51.0); %Monocytes 5.6 % (0.0-10.0); %Neutrophils 71.1 % (42.0-75.0); Hematocrit 45.8 % (42.0-52.0); Hemoglobin 15.2 g/dL (14.0-18.0); Mean Corpuscular HGB CONC 33.2 g/dL (32.0-36.0); Mean Corpuscular Hemoglobin 29.2 pg (27.0-31.0); Mean Corpuscular Volume 87.9 fL (78.0-98.0); Platelet Count 316 10x3/uL (130-400); RBC Distribution Width 14.2 % (11.5-14.5); Red Blood Cell (RBC) Count 5.21 mill/uL (4.70-6.10)
[2024-08-07 00:26] LABS: Bacteria/HPF None Seen HPF (None Seen); Bilirubin Negative (Negative); Blood, Urine Negative (Negative); CAUTI Indications for Culture Pelvic or flank pain; Clarity Clear (Clear); Glucose, Urine (Dipstick) 500 mg/dL (Negative); Ketone, Urine Negative (Negative); Leukocyte Negative Leu/uL (Negative); Nitrite Negative (Negative); Protein, Urine (Dipstick) Negative (Neg-Trace); RBC/HPF None Seen HPF (0-3); Specific Gravity, Urine 1.003 (1.002-1.036); Squamous Epithelial None Seen HPF (0-3); Urobilinogen Normal mg/dL (Less than 2); WBC/HPF 0-3 HPF (0-3)
[2024-08-07 00:30] LABS: Urine Culture Reflex No No
[2024-08-07 00:45] LABS: ALT (SGPT) 34 U/L (8-55); AST (SGOT) 77 U/L (5-34); Albumin 3.7 g/dL (3.5-5.0); Alkaline Phosphatase 70 U/L (40-110); Anion Gap 17 mmol/L (10-20); BUN (Urea Nitrogen) 44 mg/dL (8.9-20.6); Bilirubin, Total 0.6 mg/dL (0.2-1.2); Calc. Creatinine Clearance 0 mL/min (70-130); Carbon Dioxide 31 mmol/L (22-29); Chloride 92 mmol/L (98-107); Estimated GFR 45; Globulin 4.8 g/dL (2.4-3.5); Glucose 123 mg/dL (70-105); Lipase 16 U/L (8-78); Magnesium 2.8 mg/dL (1.6-2.6); Protein, Total 8.5 g/dL (6.0-8.3); Sodium 134 mmol/L (136-145)
[2024-08-07] MEDS ORDERED: Furosemide 40 MG (4 mL) VIAL ONE (01:31)
[2024-08-07 01:33] LABS: ALT (SGPT) 27 U/L (8-55); AST (SGOT) 31 U/L (5-34); Albumin 3.5 g/dL (3.5-5.0); Alkaline Phosphatase 67 U/L (40-110); Anion Gap 14 mmol/L (10-20); BUN (Urea Nitrogen) 44 mg/dL (8.9-20.6); Bilirubin, Total 0.6 mg/dL (0.2-1.2); Calc. Creatinine Clearance 0 mL/min (70-130); Calcium 8.9 mg/dL (7.8-10.44); Carbon Dioxide 33 mmol/L (22-29); Chloride 93 mmol/L (98-107); Estimated GFR 48; Globulin 3.2 g/dL (2.4-3.5); Glucose 128 mg/dL (70-105); Potassium 3.4 mmol/L (3.5-5.1); Protein, Total 6.7 g/dL (6.0-8.3); Sodium 137 mmol/L (136-145)
[2024-08-07] MEDS ORDERED: traMADol HCl 50 MG TAB PO PRN (02:03)
[2024-08-07] MEDS ORDERED: Senokot S 8.6-50 MG TAB PO PRN (02:07)
[2024-08-07] MEDS ORDERED: Ondansetron PF 4 MG/2 ML Vial IVP PRN (02:07)
[2024-08-07] MEDS ORDERED: Calcium Carbonate 500 MG ChewTAB PO PRN (02:07)
[2024-08-07] MEDS ORDERED: Acetaminophen 325 MG TAB PO PRN (02:07)
[2024-08-07] MEDS ORDERED: Non-Formulary Item 1 EACH (Milrinone Lactate/D5w [Milrinone Lactate/D5w] 20 MG/100 ML Bag IV SCH (02:15)
[2024-08-07 03:32] VITALS: BMI 31.9
[2024-08-07 03:35] VITALS: BP 95/69; TEMP 97.5
[2024-08-07] MEDS: Furosemide 40 MG (4 mL) VIAL SLOW IVP SCH (04:29)
[2024-08-07] MEDS: Potassium Chloride 20 MEQ TAB PO SCH (04:29)
[2024-08-07 05:15] LABS: Troponin I 0.385 ng/mL (< 0.028)
[2024-08-07] MEDS ORDERED: Pantoprazole DR 40 MG TAB PO SCH (09:00)
[2024-08-07] MEDS ORDERED: Spironolactone 25 MG TAB PO SCH (09:00)
[2024-08-07] MEDS ORDERED: Digoxin 0.125 MG TAB PO SCH (09:00)
[2024-08-07] MEDS ORDERED: Dapagliflozin Propanediol 10 MG TAB PO SCH (09:00)
[2024-08-07] MEDS ORDERED: Carvedilol 6.25 MG TAB PO SCH (09:00)
[2024-08-07] MEDS ORDERED: Atorvastatin Calcium 40 MG TAB PO SCH (09:00)
[2024-08-07] MEDS ORDERED: Enoxaparin 40 MG (0.4 mL) SYRINGE SC SCH (09:00)
[2024-08-07] MEDS ORDERED: Sacubitril 24MG/Valsartan 26 MG TAB PO SCH (09:00)
[2024-08-07] MEDS ORDERED: Furosemide 40 MG (4 mL) VIAL SLOW IVP SCH (14:00)
[2024-08-07] MEDS ORDERED: Zolpidem Tartrate 5 MG TAB PO SCH (21:00)
[2024-08-09] MEDS ORDERED: Metolazone 5 MG TAB PO SCH (09:00)
== END 2024-08-07 06:45 | disposition home or self-care (01) ==
LOC: ERS 23:21 → OBS 08-07 02:02
PROVIDERS: ADMIT Internal Medicine; ATTEND Internal Medicine
DX: I50.43 Acute on chronic combined systolic (congestive) and diastolic (congestive) heart failure (principal); I42.8 Other cardiomyopathies; E78.5 Hyperlipidemia, unspecified; E87.6 Hypokalemia; E66.9 Obesity, unspecified; N18.9 Chronic kidney disease, unspecified; Z91.148 Patient's other noncompliance with medication regimen for other reason; Z88.8 Allergy status to other drugs, medicaments and biological substances
CPT/HCPCS: 71045; 76705; 80053 ×2; 81001; 83690; 83735; 83880; 84484 ×2; 85025; 93005; J1940; J2272; J2405; 36415; 36416; 96374; 96375; G0378